=== PATIENT | female | born 1995 | race Caucasian/White ===

== ENCOUNTER 2024-11-22 15:30 | Emergency (ER) | payer BC ==
[~2024-11-22] VITALS: Ht 165.1 cm; Wt 75.0 kg
[2024-11-22 16:29] VITALS: PULSE 90; RESP 16; TEMP 98.8; O2SAT 98
== END 2024-11-22 16:29 | disposition home or self-care (01) ==
LOC: FSED 15:36
DX: R20.0 Anesthesia of skin (principal); F17.210 Nicotine dependence, cigarettes, uncomplicated
CPT/HCPCS: 99283